=== PATIENT | female | born 1955 | race American Indian/Alaskan Native ===

== ENCOUNTER 2017-09-14 19:13 | Inpatient (IN) | payer MEDICAID ==
[2017-09-14 19:13] VITALS: BMI 52.7
[2017-09-14 20:42] LABS: CHLORIDE 97 mmol/L (98-107); SODIUM 136 mmol/L (132-148)
[2017-09-14 20:44] LABS: INR 1.3
[2017-09-14 20:44] LABS: BASO % 0.3 % (0.0-2.0); EOS # 1.3 K/uL (0.0-0.7); EOS % 17.3 % (0.0-4.0); HEMATOCRIT 21.6 % (34.0-47.0); LYMPH # 1.8 K/uL (1.0-4.3); LYMPH % 23.9 % (20.0-40.0); MEAN CELL VOLUME 95.5 fL (81.0-99.0); MEAN CORPUSCULAR HEMOGLOBIN 30.8 pg (27.0-31.0); MEAN CORPUSCULAR HGB CONC 32.2 g/dL (33.0-37.0); MEAN PLATELET VOLUME 7.3 fL (7.2-11.7); MONO # 0.4 K/uL (0.0-0.8); MONO % 5.4 % (0.0-10.0); NRBC % 0.1 % (0.0-2.0); RED CELL DISTRIBUTION WIDTH 15.9 % (11.5-14.5); WHITE BLOOD COUNT 7.3 K/uL (4.8-10.8)
[2017-09-14 20:45] LABS: ALB/GLOB RATIO 0.8 (1.0-2.1); ALKALINE PHOSPHATASE 114 U/L (38-126); ALT/SGPT 29 U/L (9-52); AST/SGOT 27 U/L (14-36); BILIRUBIN,TOTAL 0.7 mg/dL (0.2-1.3); BLOOD UREA NITROGEN 19 mg/dL (7-17); CARBON DIOXIDE 31 mmol/L (22-30); GFR AFRICAN-AMERICAN > 60; GLUCOSE,RANDOM 104 mg/dL (65-105); TOTAL PROTEIN 6.9 g/dL (6.3-8.3)
[2017-09-14 20:46] LABS: CALCIUM 7.4 mg/dl (8.6-10.4)
--- NOTE | 2017-09-14 22:46 | C.PDOC ---
History Of Present Illness [facility] Hgb (7.2) done on outpatient bloodwork. She denies chest pain, abdominal pain, vomiting/diarrhea, rectal bleeding, vaginal bleeding. She does admit to SOB, particularly with laying flat. Time Seen by Provider: 09/14/17 20:12 Chief Complaint (Nursing): Abnormal Labs History Per: [facility], [facility] History/Exam Limitations: no limitations Current Symptoms Are (Timing): Still Present Severity: Mild Past Medical History Reviewed: Historical Data, Nursing Documentation, Vital Signs Vital Signs: Last Vital Signs Temp 97.8 F 09/18/17 08:22 Pulse 91 H 09/18/17 08:22 Resp 20 09/18/17 08:22 BP 124/77 09/18/17 09:35 Pulse Ox 100 09/18/17 16:41 - Medical History PMH: Asthma, Atrial Fibrillation, Bipolar Disorder, COPD, Depression, HTN, Hypothyroidism, Pneumonia, Schizophrenia, Seizures - [facility] Procedures CLOSURE SKIN & SUBCUTANEOUS NEC (05/29/15) Family History: States: No Known Family Hx - Social History Hx Tobacco Use: No Hx Alcohol Use: No Hx Substance Use: No Review Of Systems Except As Marked, All Systems Reviewed And Found Negative. Constitutional: Negative for: Fever, Chills Cardiovascular: Negative for: Chest Pain, Palpitations Respiratory: Positive for: Shortness of Breath, Other (orthopnea). Negative for : Cough Gastrointestinal: Negative for: Nausea, Vomiting, Abdominal Pain, Diarrhea, Melena, Hematochezia, Hematemesis Genitourinary: Negative for: Dysuria, Hematuria, Vaginal Bleeding Physical Exam - Physical Exam Appears: Well, Non-toxic, No Acute Distress Skin: Normal Color, Warm, Dry Eye(s): bilateral: Normal Inspection Oral Mucosa: Moist Cardiovascular: Rhythm Regular Respiratory: No Decreased Breath Sounds, Rales (mild, at bases B/L), No Rhonchi , No Stridor, No Wheezing Gastrointestinal/Abdominal: Normal Exam, Bowel Sounds, Soft, No Tenderness, Other (morbidly obese) Rectal: Rectal Tone (normal ), No Heme Positive, No Maroon Stool, No Melena, No Blood Streaked Stool, No Hemorrhoids, No Mass, No Tenderness Extremity: Pedal Edema (+3 pitting edema B/L LEs) Pulses: Left Dorsalis Pedis: Normal, Right Dorsalis Pedis: Normal Neurological/Psych: Oriented x3 ED Course And Treatment - Laboratory Results Result Diagrams: 09/16/17 06:49 09/16/17 06:49 O2 Sat by Pulse Oximetry: 100 (RA) Pulse Ox Interpretation: Normal Progress Note: Blood work, CXR, EKG ordered and reviewed. Patient given IV Lasix 20mg. Tranfusion of 2 units PRBCs ordered due to Hgb 6.9. Patient signed consent for blood transfusion. Reevaluation Time: 22:35 Reassessment Condition: Improved (Patient resting comfortably, in no pain or distress.) - Physician Consult Information Physician Contacted: Jayesh Turcios Outcome Of Conversation: Discussed patient with PMD, agrees with admission to his service for severe anemia, CHF. Critical Care Time - Critical Care Note Total Time (in mins): 35 Documented critical care: time excludes all time spent performing seperately billable procedures. Disposition - Disposition Disposition: HOSPITALIZED Disposition Time: 22:53 Condition: STABLE - Clinical Impression Clinical Impression: Severe anemia, CHF (congestive heart failure) Decision To Admit - Pt Status Changed To: Hospital Disposition Of: Inpatient - Admit Certification Admit to Inpatient:: After my assessment, the patient will require hospitalization for at least two midnights. This is because of the severity of symptoms shown, intensity of services needed, and/or the medical risk in this patient being treated as an outpatient. - InPatient: Physician Admission Certification: I certify that this patient requires 2 or more midnights of care for the following reason:: see notes - . Bed Request Type: Telemetry Admitting Physician: Jayesh Turcios Patient Diagnosis: Severe anemia, CHF (congestive heart failure)
[2017-09-14] MEDS ORDERED: Magnesium Hydroxide Susp 30 ml UD PO PRN (23:27)
[2017-09-14] MEDS ORDERED: ACETAMINOPHEN PO PRN (23:27)
[2017-09-15 00:07] LABS: THYROID STIMULATING HORMONE 2.39 mIU/L (0.46-4.68)
[2017-09-15 00:42] LABS: FOLATE > 20.0 ng/mL
[2017-09-15 00:48] LABS: IRON 59 ug/dL (37-170)
[2017-09-15] MEDS ORDERED: Pneumococcal 23-Valent Vaccine IM ONE (03:49)
--- NOTE | 2017-09-15 09:39 | RAD ---
PROCEDURE: CHEST RADIOGRAPH, 1 VIEW HISTORY: SOB COMPARISON: 01/10/2017 FINDINGS: LUNGS: Clear. PLEURA: No pneumothorax or pleural fluid seen. CARDIOVASCULAR: Cardiomegaly, pulmonary vascular congestion a new finding OSSEOUS STRUCTURES: No significant abnormalities. VISUALIZED UPPER ABDOMEN: Normal. OTHER FINDINGS: None. IMPRESSION: Cardiomegaly/mild CHF. Concordant results with the preliminary interpretation rendered by the emergency department physician procedure.
[2017-09-15] MEDS ORDERED: CRANBERRY PO SCH (10:00)
[2017-09-15] MEDS ORDERED: POTASSIUM CHLORIDE PO SCH (10:00)
[2017-09-15] MEDS ORDERED: Albuterol-Ipratrop 3 mg / 0.5 (3 ml) UD INH SCH (10:00)
[2017-09-15] MEDS: Enoxaparin 40 mg Syringe SC SCH (10:59)
[2017-09-15] MEDS: Aritificial Tears (15ml) OU SCH ×2 (11:00→17:24)
[2017-09-15] MEDS: Multivitamin With Minerals Tab PO SCH (11:00)
[2017-09-15] MEDS: Levothyroxine 112 MCG TAB PO SCH (11:00)
[2017-09-15] MEDS: metOLazone 5 MG TAB PO SCH (11:00)
[2017-09-15] MEDS: Potassium Chloride 10 mEq ER Tab PO SCH ×2 (11:15→17:22)
[2017-09-15] MEDS: Levothyroxine 25 MCG TAB PO SCH (11:16)
[2017-09-15 11:42] LABS: HEMATOCRIT 26.7 % (34.0-47.0); MEAN CORPUSCULAR HEMOGLOBIN 31.1 pg (27.0-31.0); MEAN CORPUSCULAR HGB CONC 33.3 g/dL (33.0-37.0); MEAN PLATELET VOLUME 7.2 fL (7.2-11.7); WHITE BLOOD COUNT 6.9 K/uL (4.8-10.8)
[2017-09-15 11:54] LABS: MEAN CELL VOLUME 93.2 fL (81.0-99.0)
[2017-09-15 12:29] LABS: BLOOD UREA NITROGEN 16 mg/dL (7-17); CALCIUM 7.4 mg/dl (8.6-10.4); CARBON DIOXIDE 32 mmol/L (22-30); CHLORIDE 97 mmol/L (98-107); GFR AFRICAN-AMERICAN > 60; GLUCOSE,RANDOM 94 mg/dL (65-105); POTASSIUM 3.7 mmol/L (3.6-5.2); SODIUM 137 mmol/L (132-148)
--- NOTE | 2017-09-15 22:08 | CP.PCM.CON ---
History of Present Illness - History of Present Illness History of Present Illness: 62 year old female with a history of COPD, afib, hypothyroid, bipolar depression , seizures, [facility] (hgb 7.2). The patient denies abnormal bleeding and bruising. She notes to progressive fatigue but denies shortness of breath and chest pain. She is s/p 2U PRBC and reports to feeling better. She has required PRBC transfusions in the past. Past medical history: COPD, afib, hypothyroid, bipolar depression, seizures Past surgical history: Denies Family history: Denies hematologic and oncologic problems Social history: Denies tobacco, alcohol, and illicit drug use. Allergies: Several, see list. Review of systems: All remaining review of systems including HEENT, cardiovascular, respiratory, gastrointestinal, genitourinary, musculoskeletal, dermatologic, neurologic, and psychiatric are negative unless mentioned in the HPI. Past Patient History - Infectious Disease Hx of Infectious Diseases: None - Past Medical History & Family History Past Medical History?: Yes - Past Social History Smoking Status: Never Smoked - CARDIAC Hx Cardiac Disorders: Yes (A.Fib) Hx Hypertension: Yes - PULMONARY Hx Chronic Obstructive Pulmonary Disease (COPD): Yes - NEUROLOGICAL Hx Seizures: Yes - HEENT Hx HEENT Problems: No - RENAL Hx Chronic Kidney Disease: No - ENDOCRINE/METABOLIC Hx Hypothyroidism: Yes - HEMATOLOGICAL/ONCOLOGICAL Hx Human Immunodeficiency Virus (HIV): No - INTEGUMENTARY Hx Dermatological Problems: Yes Other/Comment: decub lower back. Sacral decubitus - MUSCULOSKELETAL/RHEUMATOLOGICAL Hx Falls: Yes Other/Comment: Rotator cuff muscle and tendon injury of shoulder - GASTROINTESTINAL Hx Gastrointestinal Disorders: No Hx Bowel Surgery: No - GENITOURINARY/GYNECOLOGICAL Hx Sexually Transmitted Disorders: No - PSYCHIATRIC Hx Bipolar Disorder: Yes Hx Depression: Yes Hx Schizophrenia: Yes Hx Substance Use: No - SURGICAL HISTORY Other/Comment: arthroplasty - ANESTHESIA Hx Anesthesia: Yes Hx Anesthesia Reactions: No Hx Malignant Hyperthermia: No Meds Allergies/Adverse Reactions: Allergies Allergy/AdvReac Type Severity Reaction Status Date / Time Benzodiazepines Allergy Verified 09/14/17 19:32 benzthiazide Allergy Verified 09/14/17 19:32 Thiazides Allergy ANAPHYLAXIS Verified 09/14/17 19:32 - Medications Medications: Current Medications Acetaminophen (Tylenol 325mg Tab) 650 mg PO Q4 PRN PRN Reason: Pain, Mild (1-3) Albuterol/Ipratropium (Duoneb 3 Mg/0.5 Mg (3 Ml) Ud) 3 ml INH RTID [facility] Artificial Tears (Artificial Tears) 0 ml OU BID [facility] Last Admin: 09/15/17 17:24 Dose: 1 drop Diphenhydramine HCl (Benadryl) 25 mg PO BID PRN PRN Reason: Itching / Pruritus Last Admin: 09/15/17 04:49 Dose: 25 mg Enoxaparin Sodium (Lovenox) 40 mg SC DAILY [facility] Last Admin: 09/15/17 10:59 Dose: 40 mg Famotidine (Pepcid) 20 mg PO DAILY [facility] Last Admin: 09/15/17 11:15 Dose: 20 mg Furosemide (Lasix) 40 mg PO DAILY [facility] Last Admin: 09/15/17 17:25 Dose: 40 mg Lamotrigine (Lamictal) 150 mg PO BID [facility] Last Admin: 09/15/17 17:22 Dose: 150 mg Levothyroxine Sodium (Synthroid) 112 mcg PO DAILY@0630 [facility] Last Admin: 09/15/17 11:00 Dose: 112 mcg Levothyroxine Sodium (Synthroid) 25 mcg PO DAILY@0630 [facility] Last Admin: 09/15/17 11:16 Dose: 25 mcg Magnesium Hydroxide (Milk Of Magnesia) 30 ml PO HS PRN PRN Reason: Constipation Metolazone (Zaroxolyn) 5 mg PO DAILY [facility] Last Admin: 09/15/17 11:00 Dose: 5 mg Multivitamins/Minerals (Therapeutic-M Tab) 1 tab PO DAILY [facility] Last Admin: 09/15/17 11:00 Dose: 1 tab Nebivolol (Bystolic) 2.5 mg PO DAILY [facility] Last Admin: 09/15/17 11:00 Dose: 2.5 mg Nystatin (Nystop Topical Powder) 1 applic TOP BID [facility] Last Admin: 09/15/17 17:24 Dose: 1 applic Oxcarbazepine (Trileptal) 600 mg PO BID [facility] Last Admin: 09/15/17 17:22 Dose: 600 mg Phenobarbital (Phenobarbital Tab) 32.4 mg PO Q8 [facility] Last Admin: 09/15/17 21:47 Dose: 32.4 mg Pneumococcal Polyvalent Vaccine (Pneumovax 23 Vaccine) 0.5 ml IM .ONCE ONE Stop: 09/17/17 10:01 Potassium Chloride (Klor-Con 10) 10 meq PO BID [facility] Last Admin: 09/15/17 17:22 Dose: 10 meq Sertraline HCl (Zoloft) 25 mg PO DAILY [facility] Last Admin: 09/15/17 10:59 Dose: 25 mg Zinc Acetate/Diphenhydramine (Benadryl 1% Zinc Acetate -0.1%) 1 cre TOP BID PRN PRN Reason: Itching / Pruritus Ziprasidone (Geodon Cap) 40 mg PO BID [facility] Last Admin: 09/15/17 17:23 Dose: 40 mg Physical Exam - Head Exam Head Exam: ATRAUMATIC - Eye Exam Eye Exam: Normal appearance - ENT Exam ENT Exam: Mucous Membranes Dry - Respiratory Exam Respiratory Exam: NORMAL BREATHING PATTERN - Cardiovascular Exam Cardiovascular Exam: +S1, +S2 - GI/Abdominal Exam GI & Abdominal Exam: Normal Bowel Sounds - Extremities Exam Extremities exam: Positive for: pedal edema - Psychiatric Exam Psychiatric exam: Flat Affect, Normal Mood - Skin Skin Exam: Warm Results - Vital Signs Recent Vital Signs: Last Vital Signs Temp 98.2 F 09/15/17 15:12 Pulse 82 09/15/17 15:30 Resp 20 09/15/17 15:12 BP 125/68 09/15/17 17:25 Pulse Ox 100 09/15/17 15:12 - Labs Result Diagrams: 09/15/17 11:30 09/15/17 11:30 Labs: Laboratory Results - last 24 hr 09/14/17 09/14/17 09/14/17 20:26 23:21 23:30 WBC RBC Hgb Hct MCV MCH MCHC RDW Plt Count MPV Retic Count 4.0 H Sodium Potassium Chloride Carbon Dioxide Anion Gap BUN Creatinine Est GFR ( Amer) Est GFR (Non-Af Amer) Random Glucose Calcium Iron TIBC % Saturation Ferritin 284.0 Vitamin B12 948 H Folate > 20.0 TSH 3rd Generation 2.39 Stool Occult Blood Blood Type O POSITIVE Antibody Screen Negative 09/14/17 09/15/17 09/15/17 23:55 11:30 11:30 WBC 6.9 RBC 2.86 L Hgb 8.9 L D Hct 26.7 L MCV 93.2 D MCH 31.1 H MCHC 33.3 RDW 16.0 H Plt Count 324 MPV 7.2 Retic Count Sodium 137 Potassium 3.7 Chloride 97 L Carbon Dioxide 32 H Anion Gap 11 BUN 16 Creatinine 0.8 Est GFR ( Amer) > 60 Est GFR (Non-Af Amer) > 60 Random Glucose 94 Calcium 7.4 L Iron 59 TIBC 229 L % Saturation 26 Ferritin Vitamin B12 Folate TSH 3rd Generation Stool Occult Blood Blood Type Antibody Screen 09/15/17 14:17 WBC RBC Hgb Hct MCV MCH MCHC RDW Plt Count MPV Retic Count Sodium Potassium Chloride Carbon Dioxide Anion Gap BUN Creatinine Est GFR ( Amer) Est GFR (Non-Af Amer) Random Glucose Calcium Iron TIBC % Saturation Ferritin Vitamin B12 Folate TSH 3rd Generation Stool Occult Blood Negative Blood Type Antibody Screen Assessment & Plan (1) Anemia Assessment and Plan: hypoproliferative erythroid response normal iron, b12, folate stores FOBT negative x 2 s/p 2U PRBC with appropriate correction will evaluate for monoclonal protein may require bone marrow biopsy evaluation in the future if cont. to drop H/H or monoclonal protein detected can use erythropoeitin supplementation in the [facility] in an attempt to decrease transfusion dependence Status: Acute (2) Coagulopathy Assessment and Plan: mild likely nutritional Thank you for this interesting consult. Status: Acute
--- NOTE | 2017-09-15 23:15 | CP.PCM.HP ---
History of Present Illness - History of Present Illness History of Present Illness: CC: shortness of breath, delusional, restless anxious HPI: 62 year old AA female who is skilled nursing resident and dependent for ADLwith a history of COPD, afib, hypothyroid, bipolar depression, seizures, sent from the skilled nursing due to anemia (hgb 7.2). The patient denies abnormal bleeding and bruising. She notes to progressive fatigue but denies shortness of breath and chest pain. She is s/p 2U PRBC and reports to feeling better. She has required PRBC transfusions in the past. Past medical history: COPD, afib, hypothyroid, bipolar depression, seizures Past surgical history: Denies Family history: Denies hematologic and oncologic problems Social history: Denies tobacco, alcohol, and illicit drug use. Allergies: Several, see list. Review of systems: All remaining review of systems including HEENT, cardiovascular, respiratory, gastrointestinal, genitourinary, musculoskeletal, dermatologic, neurologic, and psychiatric are negative unless mentioned in the HPI. Present on Admission - Present on Admission Any Indicators Present on Admission: Yes Review of Systems - Review of Systems Systems not reviewed;Unavailable: Respiratory Distress - Constitutional Constitutional: Fatigue, Lethargy, Weakness - EENT Eyes: absent: As Per HPI, Blind Spots, Blurred Vision, Change in Vision, Decreased Night Vision, Diplopia, Discharge, Dry Eye, Exophthalmos, Floaters, Irritation, Itchy Eyes, Loss of Peripheral Vision, Pain, Photophobia, Requires Corrective Lenses, Sees Flashes, Spots in Vision, Tunnel Vision, Other Visual Disturbances, Loss of Vision, Other Ears: absent: As Per HPI, Decreased Hearing, Ear Discharge, Ear Pain, Tinnitus, Abnormal Hearing, Disequilibrium, Dizziness, Other Nose/Mouth/Throat: absent: As Per HPI, Epistaxis, Nasal Congestion, Nasal Discharge, Nasal Obstruction, Nasal Trauma, Nose Pain, Post Nasal Drip, Sinus Pain, Sinus Pressure, Bleeding Gums, Change in Voice, Dental Pain, Dry Mouth, Dysphagia, Halitosis, Hoarsness, Lip Swelling, Mouth Lesions, Mouth Pain, Odynophagia, Sore Throat, Throat Swelling, Tongue Swelling, Facial Pain, Neck Pain, Neck Mass, Other Past Patient History - Infectious Disease Hx of Infectious Diseases: None - Past Medical History & Family History Past Medical History?: Yes - Past Social History Smoking Status: Never Smoked - CARDIAC Hx Cardiac Disorders: Yes (A.Fib) Hx Hypertension: Yes - PULMONARY Hx Chronic Obstructive Pulmonary Disease (COPD): Yes - NEUROLOGICAL Hx Seizures: Yes - HEENT Hx HEENT Problems: No - RENAL Hx Chronic Kidney Disease: No - ENDOCRINE/METABOLIC Hx Hypothyroidism: Yes - HEMATOLOGICAL/ONCOLOGICAL Hx Human Immunodeficiency Virus (HIV): No - INTEGUMENTARY Hx Dermatological Problems: Yes Other/Comment: decub lower back. Sacral decubitus - MUSCULOSKELETAL/RHEUMATOLOGICAL Hx Falls: Yes Other/Comment: Rotator cuff muscle and tendon injury of shoulder - GASTROINTESTINAL Hx Gastrointestinal Disorders: No Hx Bowel Surgery: No - GENITOURINARY/GYNECOLOGICAL Hx Sexually Transmitted Disorders: No - PSYCHIATRIC Hx Bipolar Disorder: Yes Hx Depression: Yes Hx Schizophrenia: Yes Hx Substance Use: No - SURGICAL HISTORY Other/Comment: arthroplasty - ANESTHESIA Hx Anesthesia: Yes Hx Anesthesia Reactions: No Hx Malignant Hyperthermia: No Meds Allergies/Adverse Reactions: Allergies Allergy/AdvReac Type Severity Reaction Status Date / Time Benzodiazepines Allergy Verified 09/14/17 19:32 benzthiazide Allergy Verified 09/14/17 19:32 Thiazides Allergy ANAPHYLAXIS Verified 09/14/17 19:32 Physical Exam - Constitutional Appears: No Acute Distress, Agitated - Head Exam Head Exam: ATRAUMATIC, NORMAL INSPECTION, NORMOCEPHALIC - Eye Exam Eye Exam: EOMI, Normal appearance, PERRL Pupil Exam: NORMAL ACCOMODATION, PERRL - ENT Exam ENT Exam: Mucous Membranes Moist, Normal Exam - Respiratory Exam Respiratory Exam: Clear to Auscultation Bilateral, NORMAL BREATHING PATTERN - Cardiovascular Exam Cardiovascular Exam: REGULAR RHYTHM - GI/Abdominal Exam GI & Abdominal Exam: Normal Bowel Sounds, Soft. absent: Tenderness - Extremities Exam Extremities exam: Positive for: pedal edema Additional comments: +6 pitting edema - Psychiatric Exam Psychiatric exam: Agitated, Anxious - Skin Skin Exam: Dry, Intact, Normal Color, Warm Results - Vital Signs Recent Vital Signs: Last Vital Signs Temp 98.2 F 09/15/17 15:12 Pulse 82 09/15/17 15:30 Resp 20 09/15/17 15:12 BP 125/68 09/15/17 17:25 Pulse Ox 100 09/15/17 15:12 - Labs Result Diagrams: 09/15/17 11:30 09/15/17 11:30 Labs: Laboratory Results - last 24 hr 09/14/17 09/14/17 09/14/17 20:26 23:21 23:30 WBC RBC Hgb Hct MCV MCH MCHC RDW Plt Count MPV Retic Count 4.0 H Sodium Potassium Chloride Carbon Dioxide Anion Gap BUN Creatinine Est GFR ( Amer) Est GFR (Non-Af Amer) Random Glucose Calcium Iron TIBC % Saturation Ferritin 284.0 Vitamin B12 948 H Folate > 20.0 TSH 3rd Generation 2.39 Stool Occult Blood Blood Type O POSITIVE Antibody Screen Negative 09/14/17 09/15/17 09/15/17 23:55 11:30 11:30 WBC 6.9 RBC 2.86 L Hgb 8.9 L D Hct 26.7 L MCV 93.2 D MCH 31.1 H MCHC 33.3 RDW 16.0 H Plt Count 324 MPV 7.2 Retic Count Sodium 137 Potassium 3.7 Chloride 97 L Carbon Dioxide 32 H Anion Gap 11 BUN 16 Creatinine 0.8 Est GFR ( Amer) > 60 Est GFR (Non-Af Amer) > 60 Random Glucose 94 Calcium 7.4 L Iron 59 TIBC 229 L % Saturation 26 Ferritin Vitamin B12 Folate TSH 3rd Generation Stool Occult Blood Blood Type Antibody Screen 09/15/17 14:17 WBC RBC Hgb Hct MCV MCH MCHC RDW Plt Count MPV Retic Count Sodium Potassium Chloride Carbon Dioxide Anion Gap BUN Creatinine Est GFR ( Amer) Est GFR (Non-Af Amer) Random Glucose Calcium Iron TIBC % Saturation Ferritin Vitamin B12 Folate TSH 3rd Generation Stool Occult Blood Negative Blood Type Antibody Screen Assessment & Plan (1) HTN (hypertension) Status: Acute (2) Morbid obesity Status: Acute (3) Symptomatic anemia Assessment and Plan: hb went diwn to 7.2 fluid overload rule ourt hemolysisi including megaloblastic anemia unlikley GI loss as stool guiac was neg Status: Acute (4) Anemia Status: Acute
[2017-09-16] MEDS: Levothyroxine 25 MCG TAB PO SCH (06:05)
[2017-09-16 07:02] LABS: BASO % 0.3 % (0.0-2.0); EOS # 1.1 K/uL (0.0-0.7); EOS % 17.5 % (0.0-4.0); LYMPH # 1.3 K/uL (1.0-4.3); LYMPH % 21.4 % (20.0-40.0); MEAN CORPUSCULAR HEMOGLOBIN 31.3 pg (27.0-31.0); MEAN CORPUSCULAR HGB CONC 33.3 g/dL (33.0-37.0); MEAN PLATELET VOLUME 7.1 fL (7.2-11.7); MONO # 0.4 K/uL (0.0-0.8); MONO % 7.2 % (0.0-10.0); NRBC % 0.1 % (0.0-2.0); RED CELL DISTRIBUTION WIDTH 15.8 % (11.5-14.5); WHITE BLOOD COUNT 6.2 K/uL (4.8-10.8)
[2017-09-16 07:34] LABS: BLOOD UREA NITROGEN 17 mg/dL (7-17); CALCIUM 7.5 mg/dl (8.6-10.4); CARBON DIOXIDE 33 mmol/L (22-30); CHLORIDE 98 mmol/L (98-107); GFR AFRICAN-AMERICAN > 60; GLUCOSE,RANDOM 82 mg/dL (65-105); POTASSIUM 3.6 mmol/L (3.6-5.2); SODIUM 137 mmol/L (132-148)
[2017-09-16] MEDS: Potassium Chloride 10 mEq ER Tab PO SCH ×2 (10:38→18:34)
[2017-09-16] MEDS: Multivitamin With Minerals Tab PO SCH (10:38)
[2017-09-16] MEDS: Aritificial Tears (15ml) OU SCH ×2 (10:40→18:33)
[2017-09-16] MEDS: metOLazone 5 MG TAB PO SCH (10:41)
[2017-09-16] MEDS: Diphenhydramine 1% Cream (1 oz) TOP PRN (10:42)
[2017-09-16] MEDS: Enoxaparin 40 mg Syringe SC SCH (10:44)
--- NOTE | 2017-09-16 13:29 | CARD ---
APPROVED REPORT EXAM: Two-dimensional and M-mode echocardiogram with Doppler and color Doppler. Other Information Quality : TDSRhythm : Atrial Fibrillation INDICATION Congestive Heart Failure COPD RISK FACTORS Hypertension M-Mode DIMENSIONS RVDd2.29 (2.1-3.2cm)Left Atrium (MM)3.44 (2.5-4.0cm) IVSd0.97 (0.7-1.1cm)Aortic Root3.16 (2.2-3.7cm) LVDd4.55 (4.0-5.6cm)Aortic Cusp Exc.1.94 (1.5-2.0cm) PWd0.94 (0.7-1.1cm)FS (%) 38 % LVDs2.81 (2.0-3.8cm)LVEF (%)68 (>50%) Mitral Valve MV E [id number]/sMV A Bubafpjk447.1cm/sE/A ratio0.8 TDI E/Lateral E'0.0E/Medial E'0.0 Tricuspid Valve TR Peak [id number]/sTR Peak [id number] LEFT VENTRICLE The left ventricle is normal size. There is normal left ventricular wall thickness. The left ventricular function is normal. The left ventricular ejection fraction is within the normal range. There is normal LV segmental wall motion. RIGHT VENTRICLE The right ventricle is normal size. The right ventricular systolic function is normal. ATRIA The left atrium size is normal. The right atrium size is normal. AORTIC VALVE The aortic valve is moderately sclerotic. No aortic regurgitation is present. MITRAL VALVE Mitral annular calcification is mild. TRICUSPID VALVE The tricuspid valve is normal in structure. PULMONIC VALVE There is mild pulmonic valvular regurgitation. GREAT VESSELS The aortic root displays mild sclerocalcific changes of the aortic root. PERICARDIAL EFFUSION There is no pericardial effusion. <Conclusion> TECHNICALLY DIFFICULT STUDY WITH MILD DIASTOLIC DYSFUNCTION AND MILD MD. The aortic valve is moderately sclerotic. The aortic root displays mild sclerocalcific changes of the aortic root.
--- NOTE | 2017-09-16 21:03 | CON ---
PSYCHIATRIC CONSULTATION DATE OF SERVICE: 09/16/2017 CHIEF COMPLAINT AND REASON FOR CONSULTATION: The patient is referred by Dr. Turcios for evaluation and review of the patient's meds. The patient has a history of schizoaffective disorder, bipolar type, on multiple psych meds. HISTORY OF PRESENT ILLNESS: This is a case of a 62-year-old female with extensive psych history consisted of schizoaffective disorder, bipolar type. The patient was brought in from the emergency room complaining of shortness of breath, anxiety, and some periods of paranoid delusion. The patient was noted to have very low hemoglobin which was 7.2. The patient had transfusion and feeling better, but referred for comanagement as the patient has been on multiple psych meds. The patient reports that she has been taking these medicines for a [facility], but really could not give a timeframe. The patient is on Geodon 40 mg b.i.d., Lamictal 150 mg b.i.d. The patient also is on phenobarbital 32.4 mg q. 8 hours, this is for her seizures. The patient is on Trileptal 600 mg twice a day and also on Zoloft 25 mg daily. She states she cannot remember the name of the psychiatrist who is following her. The patient has been compliant with meds according to the nurse. She is irritable at times, but generally redirectable. On review of her labs, her current hemoglobin now is 8.6. The patient states she still has trouble sleeping, is anxious at times, and states that she wants her medications reviewed because she states she is taking too much of medication. PAST PSYCHIATRIC HISTORY: Has history of schizoaffective disorder, bipolar type. She states that she was [facility] No suicidal history. PAST MEDICAL HISTORY: The patient has history of anemia, history of transfusion in the past, hypertension, morbid obesity, history of chest pain, history of fall. ALLERGIES: THE PATIENT IS ALLERGIC TO BENZOS, THIAZIDES. LABORATORY DATA: On review of her labs, the patient stated her last hemoglobin is 8.6, hematocrit is 26. Her creatinine is 0.9, iron is 59, B12 is 948, folate is greater than 20, TSH is 2.39. MEDICATIONS: The patient states that she has been taking her medications. On review of her meds, the patient is on Benadryl, Bystolic, albuterol, Geodon, the patient is on magnesium, Lovenox, nystatin, phenobarbital, Synthroid. Her TSH is 2.39 which is within normal limits. Other medications include as stated, lamotrigine, Lasix, Lovenox, famotidine, metolazone, sertraline. REVIEW OF SYSTEMS: GENERAL: The patient is alert and oriented x3, seen in her room, appears obese, irritable since she is not sleeping well. SKIN: No diaphoresis. HEENT: No headache or dizziness. NECK: Supple. RESPIRATORY: No dyspnea. CARDIOVASCULAR: No chest pain. GASTROINTESTINAL: No nausea, no vomiting. EXTREMITIES: The patient is not complaining of pain. NEUROLOGIC: Alert and oriented x3. GENITOURINARY: No dysuria. PHYSICAL EXAMINATION: GENERAL: Elderly female, obese. VITAL SIGNS: Height 5 feet 5 inches, weighs 348 pounds. MENTAL STATUS: The patient's mood is irritable.. Affect is reactive. The patient states she is taking too many psych meds. The patient is referred and is to be seen by PRIYA Espinal, for the anemia. She is also to be seen by Dr. Tierney for the anemia, Hematology. Speech spontaneous. Thought process coherent. Thought content, no overt psychosis, no suicidal or homicidal ideation. Attention and memory seem to be fair. Insight and judgment fair. Impulse control is fair. IMPRESSION: History of schizoaffective disorder, bipolar type, as well as history of anemia. PLAN AND RECOMMENDATIONS: The patient is seen. Meds were reviewed. The patient is currently taking multiple psych meds. Note, the patient is on Trileptal which can have hematologic side effects, especially with prolonged use. The patient also is on phenobarbital as well as Geodon and sertraline. The patient is denying feeling depressed at this time. We will discontinue the sertraline and just keep the patient on the Trileptal as well as the Geodon and the Lamictal. Continue treatment plan as outlined. Once the patient is medically cleared, [facility]. The patient may continue taking phenobarbital, this is for her seizures, but for now, we will discontinue the Zoloft as the patient is not depressed and also the patient is taking multiple medications. Thank you very much for the consultation. Sonny Mclaughlin MD
--- NOTE | 2017-09-16 21:41 | CON ---
ADDENDUM Review of her meds, the two medications that possibly can cause worsening of her anemia is Zoloft. The Zoloft can cause iron-deficiency anemia as Zoloft affects the absorption of iron leading to iron-deficiency anemia. Also the patient is taking Trileptal; Trileptal can cause hematologic side effects in chronic use if taking for long time and can cause anemia and even can cause aplastic anemia. The patient also may develop in very rare cases agranulocytosis, and Trileptal can cause bone marrow depression. Sonny Mclaughlin MD
--- NOTE | 2017-09-16 23:09 | CP.PCM.PN ---
Subjective - Date & Time of Evaluation Date of Evaluation: 09/16/17 Time of Evaluation: 19:00 - Subjective Subjective: Patient seen and examined today, awake, more alert today , denies any chest pain , sob , abdominal pain, N/V/D Objective - Vital Signs/Intake and Output Vital Signs (last 24 hours): Temp Pulse Resp BP Pulse Ox 97.7 F 88 20 109/65 100 09/16/17 15:18 09/16/17 15:18 09/16/17 15:18 09/16/17 15:18 09/16/17 15:18 - Medications Medications: Current Medications Acetaminophen (Tylenol 325mg Tab) 650 mg PO Q4 PRN PRN Reason: Pain, Mild (1-3) Albuterol/Ipratropium (Duoneb 3 Mg/0.5 Mg (3 Ml) Ud) 3 ml INH RTID [facility] Artificial Tears (Artificial Tears) 0 ml OU BID [facility] Last Admin: 09/16/17 18:33 Dose: 1 drop Diphenhydramine HCl (Benadryl) 25 mg PO BID PRN PRN Reason: Itching / Pruritus Last Admin: 09/15/17 04:49 Dose: 25 mg Enoxaparin Sodium (Lovenox) 40 mg SC DAILY [facility] Last Admin: 09/16/17 10:44 Dose: 40 mg Famotidine (Pepcid) 20 mg PO DAILY [facility] Last Admin: 09/16/17 10:38 Dose: 20 mg Furosemide (Lasix) 40 mg PO DAILY [facility] Last Admin: 09/16/17 10:41 Dose: 40 mg Lamotrigine (Lamictal) 150 mg PO BID [facility] Last Admin: 09/16/17 18:34 Dose: 150 mg Levothyroxine Sodium (Synthroid) 112 mcg PO DAILY@0630 [facility] Last Admin: 09/15/17 11:00 Dose: 112 mcg Levothyroxine Sodium (Synthroid) 25 mcg PO DAILY@0630 [facility] Last Admin: 09/16/17 06:05 Dose: 25 mcg Magnesium Hydroxide (Milk Of Magnesia) 30 ml PO HS PRN PRN Reason: Constipation Metolazone (Zaroxolyn) 5 mg PO DAILY [facility] Last Admin: 09/16/17 10:41 Dose: 5 mg Multivitamins/Minerals (Therapeutic-M Tab) 1 tab PO DAILY [facility] Last Admin: 09/16/17 10:38 Dose: 1 tab Nebivolol (Bystolic) 2.5 mg PO DAILY [facility] Last Admin: 09/16/17 10:30 Dose: 2.5 mg Nystatin (Nystop Topical Powder) 1 applic TOP BID [facility] Last Admin: 09/16/17 21:55 Dose: 1 applic Oxcarbazepine (Trileptal) 600 mg PO BID [facility] Last Admin: 09/16/17 18:35 Dose: 600 mg Phenobarbital (Phenobarbital Tab) 32.4 mg PO Q8 [facility] Last Admin: 09/16/17 21:55 Dose: 32.4 mg Pneumococcal Polyvalent Vaccine (Pneumovax 23 Vaccine) 0.5 ml IM .ONCE ONE Stop: 09/17/17 10:01 Potassium Chloride (Klor-Con 10) 10 meq PO BID [facility] Last Admin: 09/16/17 18:34 Dose: 10 meq Zinc Acetate/Diphenhydramine (Benadryl 1% Zinc Acetate -0.1%) 1 cre TOP BID PRN PRN Reason: Itching / Pruritus Last Admin: 09/16/17 10:42 Dose: 1 applic Ziprasidone (Geodon Cap) 40 mg PO BID [facility] Last Admin: 09/16/17 18:34 Dose: 40 mg - Labs Labs: 09/16/17 06:49 09/16/17 06:49 PT 14.4 SECONDS (9.7-12.2) H 09/14/17 20:33 INR 1.3 09/14/17 20:33 APTT 34 SECONDS (21-34) 09/14/17 20:33 Assessment and Plan (1) HTN (hypertension) Status: Acute (2) Morbid obesity Status: Acute (3) Symptomatic anemia Status: Acute (4) Anemia Status: Acute
[2017-09-17] MEDS: Levothyroxine 25 MCG TAB PO SCH (06:02)
[2017-09-17] MEDS: Levothyroxine 112 MCG TAB PO SCH (06:03)
[2017-09-17 07:24] LABS: TOTAL PROTEIN, SERUM 6.7 g/dL (6.1-8.1)
--- NOTE | 2017-09-17 08:47 | CARD ---
APPROVED REPORT EKG Measurement Heart [id number] <Conclusion> Normal sinus rhythm ST & T wave abnormality, consider anterolateral ischemia Prolonged QT Abnormal ECG
[2017-09-17] MEDS ORDERED: Pneumococcal 23-Valent Vaccine IM ONE (10:00)
[2017-09-17] MEDS ORDERED: Influenza Vaccine 60 mcg/0.5 mL SYR (4YR UP) IM ONE (10:00)
[2017-09-17] MEDS: Aritificial Tears (15ml) OU SCH ×2 (10:32→17:53)
[2017-09-17] MEDS: Diphenhydramine 1% Cream (1 oz) TOP PRN (10:33)
[2017-09-17] MEDS: Potassium Chloride 10 mEq ER Tab PO SCH ×2 (10:34→17:52)
[2017-09-17] MEDS: Enoxaparin 40 mg Syringe SC SCH (10:35)
[2017-09-17] MEDS: metOLazone 5 MG TAB PO SCH (10:37)
[2017-09-17] MEDS: Multivitamin With Minerals Tab PO SCH (10:37)
--- NOTE | 2017-09-17 12:03 | CP.PCM.PN ---
Subjective - Date & Time of Evaluation Date of Evaluation: 09/16/17 Time of Evaluation: 19:00 - Subjective Subjective: No complaints. Objective - Vital Signs/Intake and Output Vital Signs (last 24 hours): Temp Pulse Resp BP Pulse Ox 98.4 F 80 18 104/55 L 99 09/17/17 08:31 09/17/17 08:31 09/17/17 08:31 09/17/17 10:35 09/17/17 08:31 Intake and Output: 09/17/17 09/17/17 06:59 18:59 Intake Total 720 Output Total 1700 Balance -980 - Medications Medications: Current Medications Acetaminophen (Tylenol 325mg Tab) 650 mg PO Q4 PRN PRN Reason: Pain, Mild (1-3) Albuterol/Ipratropium (Duoneb 3 Mg/0.5 Mg (3 Ml) Ud) 3 ml INH RTID [facility] Artificial Tears (Artificial Tears) 0 ml OU BID [facility] Last Admin: 09/17/17 10:32 Dose: 1 drop Diphenhydramine HCl (Benadryl) 25 mg PO BID PRN PRN Reason: Itching / Pruritus Last Admin: 09/17/17 10:33 Dose: 25 mg Enoxaparin Sodium (Lovenox) 40 mg SC DAILY [facility] Last Admin: 09/17/17 10:35 Dose: 40 mg Famotidine (Pepcid) 20 mg PO DAILY [facility] Last Admin: 09/17/17 10:36 Dose: 20 mg Furosemide (Lasix) 40 mg PO DAILY [facility] Last Admin: 09/17/17 10:35 Dose: 40 mg Lamotrigine (Lamictal) 150 mg PO BID [facility] Last Admin: 09/17/17 10:35 Dose: 150 mg Levothyroxine Sodium (Synthroid) 112 mcg PO DAILY@0630 [facility] Last Admin: 09/17/17 06:03 Dose: 112 mcg Levothyroxine Sodium (Synthroid) 25 mcg PO DAILY@0630 [facility] Last Admin: 09/17/17 06:02 Dose: 25 mcg Magnesium Hydroxide (Milk Of Magnesia) 30 ml PO HS PRN PRN Reason: Constipation Metolazone (Zaroxolyn) 5 mg PO DAILY [facility] Last Admin: 09/17/17 10:37 Dose: 5 mg Multivitamins/Minerals (Therapeutic-M Tab) 1 tab PO DAILY [facility] Last Admin: 09/17/17 10:37 Dose: 1 tab Nebivolol (Bystolic) 2.5 mg PO DAILY [facility] Last Admin: 09/17/17 10:34 Dose: 2.5 mg Nystatin (Nystop Topical Powder) 1 applic TOP BID [facility] Last Admin: 09/17/17 10:36 Dose: 1 applic Oxcarbazepine (Trileptal) 600 mg PO BID [facility] Last Admin: 09/17/17 11:00 Dose: 600 mg Phenobarbital (Phenobarbital Tab) 32.4 mg PO Q8 [facility] Last Admin: 09/17/17 06:03 Dose: 32.4 mg Potassium Chloride (Klor-Con 10) 10 meq PO BID [facility] Last Admin: 09/17/17 10:34 Dose: 10 meq Zinc Acetate/Diphenhydramine (Benadryl 1% Zinc Acetate -0.1%) 1 cre TOP BID PRN PRN Reason: Itching / Pruritus Last Admin: 09/17/17 10:33 Dose: 1 applic Ziprasidone (Geodon Cap) 40 mg PO BID [facility] Last Admin: 09/17/17 11:00 Dose: 40 mg - Labs Labs: 09/16/17 06:49 09/16/17 06:49 PT 14.4 SECONDS (9.7-12.2) H 09/14/17 20:33 INR 1.3 09/14/17 20:33 APTT 34 SECONDS (21-34) 09/14/17 20:33 - Head Exam Head Exam: ATRAUMATIC - Eye Exam Eye Exam: Normal appearance - ENT Exam ENT Exam: Mucous Membranes Dry - Respiratory Exam Respiratory Exam: NORMAL BREATHING PATTERN - Cardiovascular Exam Cardiovascular Exam: +S1, +S2 - GI/Abdominal Exam GI & Abdominal Exam: Normal Bowel Sounds Assessment and Plan (1) Anemia Assessment & Plan: monoclonal protein work up sent ?psych med related s/p PRBC transfusion Status: Acute (2) Coagulopathy Status: Acute
--- NOTE | 2017-09-17 12:06 | CP.PCM.PN ---
Subjective - Date & Time of Evaluation Date of Evaluation: 09/17/17 Time of Evaluation: 12:00 - Subjective Subjective: No complaints. Objective - Vital Signs/Intake and Output Vital Signs (last 24 hours): Temp Pulse Resp BP Pulse Ox 98.4 F 80 18 104/55 L 99 09/17/17 08:31 09/17/17 08:31 09/17/17 08:31 09/17/17 10:35 09/17/17 08:31 Intake and Output: 09/17/17 09/17/17 06:59 18:59 Intake Total 720 Output Total 1700 Balance -980 - Medications Medications: Current Medications Acetaminophen (Tylenol 325mg Tab) 650 mg PO Q4 PRN PRN Reason: Pain, Mild (1-3) Albuterol/Ipratropium (Duoneb 3 Mg/0.5 Mg (3 Ml) Ud) 3 ml INH RTID [facility] Artificial Tears (Artificial Tears) 0 ml OU BID [facility] Last Admin: 09/17/17 10:32 Dose: 1 drop Diphenhydramine HCl (Benadryl) 25 mg PO BID PRN PRN Reason: Itching / Pruritus Last Admin: 09/17/17 10:33 Dose: 25 mg Enoxaparin Sodium (Lovenox) 40 mg SC DAILY [facility] Last Admin: 09/17/17 10:35 Dose: 40 mg Famotidine (Pepcid) 20 mg PO DAILY [facility] Last Admin: 09/17/17 10:36 Dose: 20 mg Furosemide (Lasix) 40 mg PO DAILY [facility] Last Admin: 09/17/17 10:35 Dose: 40 mg Lamotrigine (Lamictal) 150 mg PO BID [facility] Last Admin: 09/17/17 10:35 Dose: 150 mg Levothyroxine Sodium (Synthroid) 112 mcg PO DAILY@0630 [facility] Last Admin: 09/17/17 06:03 Dose: 112 mcg Levothyroxine Sodium (Synthroid) 25 mcg PO DAILY@0630 [facility] Last Admin: 09/17/17 06:02 Dose: 25 mcg Magnesium Hydroxide (Milk Of Magnesia) 30 ml PO HS PRN PRN Reason: Constipation Metolazone (Zaroxolyn) 5 mg PO DAILY [facility] Last Admin: 09/17/17 10:37 Dose: 5 mg Multivitamins/Minerals (Therapeutic-M Tab) 1 tab PO DAILY [facility] Last Admin: 09/17/17 10:37 Dose: 1 tab Nebivolol (Bystolic) 2.5 mg PO DAILY [facility] Last Admin: 09/17/17 10:34 Dose: 2.5 mg Nystatin (Nystop Topical Powder) 1 applic TOP BID [facility] Last Admin: 09/17/17 10:36 Dose: 1 applic Oxcarbazepine (Trileptal) 600 mg PO BID [facility] Last Admin: 09/17/17 11:00 Dose: 600 mg Phenobarbital (Phenobarbital Tab) 32.4 mg PO Q8 [facility] Last Admin: 09/17/17 06:03 Dose: 32.4 mg Potassium Chloride (Klor-Con 10) 10 meq PO BID [facility] Last Admin: 09/17/17 10:34 Dose: 10 meq Zinc Acetate/Diphenhydramine (Benadryl 1% Zinc Acetate -0.1%) 1 cre TOP BID PRN PRN Reason: Itching / Pruritus Last Admin: 09/17/17 10:33 Dose: 1 applic Ziprasidone (Geodon Cap) 40 mg PO BID [facility] Last Admin: 09/17/17 11:00 Dose: 40 mg - Labs Labs: 09/16/17 06:49 09/16/17 06:49 PT 14.4 SECONDS (9.7-12.2) H 09/14/17 20:33 INR 1.3 09/14/17 20:33 APTT 34 SECONDS (21-34) 09/14/17 20:33 - Head Exam Head Exam: ATRAUMATIC - Eye Exam Eye Exam: Normal appearance - ENT Exam ENT Exam: Mucous Membranes Dry - Respiratory Exam Respiratory Exam: NORMAL BREATHING PATTERN - Cardiovascular Exam Cardiovascular Exam: +S1, +S2 - GI/Abdominal Exam GI & Abdominal Exam: Normal Bowel Sounds Assessment and Plan (1) Anemia Assessment & Plan: ?psych med related; zoloft D/C'd monoclonal protein w/u sent; outpatient f/u s/p PRBC transfusion Status: Acute (2) Coagulopathy Status: Acute
--- NOTE | 2017-09-17 14:27 | CP.PCM.PN ---
Subjective - Date & Time of Evaluation Date of Evaluation: 09/17/17 Time of Evaluation: 10:30 - Subjective Subjective: patient seen and examined today , awake, alert, ox3. denies any chest pain, sob , abdominal pain, N/V s/p PRBC transfusion hgb improved - 8.6<8.9>6.9 Objective - Vital Signs/Intake and Output Vital Signs (last 24 hours): Temp Pulse Resp BP Pulse Ox 98.4 F 80 18 104/55 L 99 09/17/17 08:31 09/17/17 08:31 09/17/17 08:31 09/17/17 10:35 09/17/17 08:31 Intake and Output: 09/17/17 09/17/17 06:59 18:59 Intake Total 720 Output Total 1700 Balance -980 - Medications Medications: Current Medications Acetaminophen (Tylenol 325mg Tab) 650 mg PO Q4 PRN PRN Reason: Pain, Mild (1-3) Albuterol/Ipratropium (Duoneb 3 Mg/0.5 Mg (3 Ml) Ud) 3 ml INH RTID [facility] Artificial Tears (Artificial Tears) 0 ml OU BID [facility] Last Admin: 09/17/17 10:32 Dose: 1 drop Diphenhydramine HCl (Benadryl) 25 mg PO BID PRN PRN Reason: Itching / Pruritus Last Admin: 09/17/17 10:33 Dose: 25 mg Enoxaparin Sodium (Lovenox) 40 mg SC DAILY [facility] Last Admin: 09/17/17 10:35 Dose: 40 mg Famotidine (Pepcid) 20 mg PO DAILY [facility] Last Admin: 09/17/17 10:36 Dose: 20 mg Furosemide (Lasix) 40 mg PO DAILY [facility] Last Admin: 09/17/17 10:35 Dose: 40 mg Lamotrigine (Lamictal) 150 mg PO BID [facility] Last Admin: 09/17/17 10:35 Dose: 150 mg Levothyroxine Sodium (Synthroid) 112 mcg PO DAILY@0630 [facility] Last Admin: 09/17/17 06:03 Dose: 112 mcg Levothyroxine Sodium (Synthroid) 25 mcg PO DAILY@0630 [facility] Last Admin: 09/17/17 06:02 Dose: 25 mcg Magnesium Hydroxide (Milk Of Magnesia) 30 ml PO HS PRN PRN Reason: Constipation Metolazone (Zaroxolyn) 5 mg PO DAILY [facility] Last Admin: 09/17/17 10:37 Dose: 5 mg Multivitamins/Minerals (Therapeutic-M Tab) 1 tab PO DAILY [facility] Last Admin: 09/17/17 10:37 Dose: 1 tab Nebivolol (Bystolic) 2.5 mg PO DAILY [facility] Last Admin: 09/17/17 10:34 Dose: 2.5 mg Nystatin (Nystop Topical Powder) 1 applic TOP BID [facility] Last Admin: 09/17/17 10:36 Dose: 1 applic Oxcarbazepine (Trileptal) 600 mg PO BID [facility] Last Admin: 09/17/17 11:00 Dose: 600 mg Phenobarbital (Phenobarbital Tab) 32.4 mg PO Q8 [facility] Last Admin: 09/17/17 06:03 Dose: 32.4 mg Potassium Chloride (Klor-Con 10) 10 meq PO BID [facility] Last Admin: 09/17/17 10:34 Dose: 10 meq Zinc Acetate/Diphenhydramine (Benadryl 1% Zinc Acetate -0.1%) 1 cre TOP BID PRN PRN Reason: Itching / Pruritus Last Admin: 09/17/17 10:33 Dose: 1 applic Ziprasidone (Geodon Cap) 40 mg PO BID [facility] Last Admin: 09/17/17 11:00 Dose: 40 mg - Labs Labs: 09/16/17 06:49 09/16/17 06:49 PT 14.4 SECONDS (9.7-12.2) H 09/14/17 20:33 INR 1.3 09/14/17 20:33 APTT 34 SECONDS (21-34) 09/14/17 20:33 - Constitutional Appears: No Acute Distress - Respiratory Exam Respiratory Exam: Clear to Ausculation Bilateral, NORMAL BREATHING PATTERN - Cardiovascular Exam Cardiovascular Exam: REGULAR RHYTHM, +S1, +S2 - Neurological Exam Neurological Exam: Alert, Awake, Oriented x3 Assessment and Plan - Assessment and Plan (Free Text) Assessment: A/P 62 yr old female admitted with severe anemia s/p PRBC transfusion hgb improved after transfusion and patient clinically improved stool OB - negative D/W Dr. Tierney ,cleared for discharge to [facility] today and f/u with Dr. Tierney office in [address] Turcios, stable for discharge to [place] today and Dr. Turcios will follow the patient at [facility]
--- NOTE | 2017-09-17 15:03 | PN ---
DATE: 09/17/2017 SUBJECTIVE: The patient is seen. The patient is noted by staff, especially the nurse, to be very irritable and accusing that she is going to report the nurse. Other than that, the patient is close to her baseline. The patient was taking her Zoloft as the patient has diagnosis of anemia and Zoloft can affect the iron transfer system causing the patient to develop iron-deficiency anemia. The patient also is on Trileptal, which can cause bone marrow changes. The patient has been followed by Dr. Tierney and also GI, by Dr. Richardson. Other than that, the patient is manageable, compliant with meds. PHYSICAL EXAMINATION: VITAL SIGNS: Temperature is 98.4, pulse is 80, blood pressure is 132/83, respirations 18, oxygen sats 99%. REVIEW OF SYSTEMS: GENERAL: The patient is alert and oriented x 3, seen in her room, still irritable, but offers no other complaints. SKIN: No diaphoresis. HEENT: No headache or dizziness. NECK: Supple. RESPIRATORY: No shortness of breath. CARDIOVASCULAR: No chest pain. GASTROINTESTINAL: No nausea. No vomiting. EXTREMITIES: The patient is moving extremities. MUSCULOSKELETAL: Feels weak. NEUROLOGIC: Alert and oriented x 3. GENITOURINARY: No dysuria. MENTAL STATUS EXAMINATION: Obese, elderly female, looks stated age, oriented x 3. Mood is still irritable. Affect is reactive. Speech spontaneous. Thought process coherent. Thought content, the patient is very guarded, seems paranoid at times. No suicidal or homicidal ideation. Attention and memory seems to be fair. Insight and judgement fair. Impulse control is fair. IMPRESSION: History of schizoaffective disorder, bipolar type; anemia; hypertension; morbid obesity. PLAN AND RECOMMENDATIONS: The patient was seen, meds reviewed. Continue present management as ordered. I will keep the patient off Zoloft for now. Continue all other psych meds. The patient once medically stable can go back to the senior living for long-term care. Sonny Mclaughlin MD [facility]
[2017-09-17 15:56] VITALS: RESP 20
--- NOTE | 2017-09-17 22:41 | CP.PCM.PN ---
Subjective - Date & Time of Evaluation Date of Evaluation: 09/17/17 Time of Evaluation: 19:25 Objective - Vital Signs/Intake and Output Vital Signs (last 24 hours): Temp Pulse Resp BP Pulse Ox 98.6 F 80 20 114/74 100 09/17/17 15:15 09/17/17 15:15 09/17/17 15:15 09/17/17 15:15 09/17/17 15:15 - Medications Medications: Current Medications Acetaminophen (Tylenol 325mg Tab) 650 mg PO Q4 PRN PRN Reason: Pain, Mild (1-3) Albuterol/Ipratropium (Duoneb 3 Mg/0.5 Mg (3 Ml) Ud) 3 ml INH RTID [facility] Artificial Tears (Artificial Tears) 0 ml OU BID [facility] Last Admin: 09/17/17 17:53 Dose: 1 drop Diphenhydramine HCl (Benadryl) 25 mg PO BID PRN PRN Reason: Itching / Pruritus Last Admin: 09/17/17 10:33 Dose: 25 mg Enoxaparin Sodium (Lovenox) 40 mg SC DAILY [facility] Last Admin: 09/17/17 10:35 Dose: 40 mg Famotidine (Pepcid) 20 mg PO DAILY [facility] Last Admin: 09/17/17 10:36 Dose: 20 mg Furosemide (Lasix) 40 mg PO DAILY [facility] Last Admin: 09/17/17 10:35 Dose: 40 mg Lamotrigine (Lamictal) 150 mg PO BID [facility] Last Admin: 09/17/17 17:50 Dose: 150 mg Levothyroxine Sodium (Synthroid) 112 mcg PO DAILY@0630 [facility] Last Admin: 09/17/17 06:03 Dose: 112 mcg Levothyroxine Sodium (Synthroid) 25 mcg PO DAILY@0630 [facility] Last Admin: 09/17/17 06:02 Dose: 25 mcg Magnesium Hydroxide (Milk Of Magnesia) 30 ml PO HS PRN PRN Reason: Constipation Metolazone (Zaroxolyn) 5 mg PO DAILY [facility] Last Admin: 09/17/17 10:37 Dose: 5 mg Multivitamins/Minerals (Therapeutic-M Tab) 1 tab PO DAILY [facility] Last Admin: 09/17/17 10:37 Dose: 1 tab Nebivolol (Bystolic) 2.5 mg PO DAILY [facility] Last Admin: 09/17/17 10:34 Dose: 2.5 mg Nystatin (Nystop Topical Powder) 1 applic TOP BID [facility] Last Admin: 09/17/17 10:36 Dose: 1 applic Oxcarbazepine (Trileptal) 600 mg PO BID [facility] Last Admin: 09/17/17 17:50 Dose: 600 mg Phenobarbital (Phenobarbital Tab) 32.4 mg PO Q8 [facility] Last Admin: 09/17/17 15:03 Dose: 32.4 mg Potassium Chloride (Klor-Con 10) 10 meq PO BID [facility] Last Admin: 09/17/17 17:52 Dose: 10 meq Zinc Acetate/Diphenhydramine (Benadryl 1% Zinc Acetate -0.1%) 1 cre TOP BID PRN PRN Reason: Itching / Pruritus Last Admin: 09/17/17 10:33 Dose: 1 applic Ziprasidone (Geodon Cap) 40 mg PO BID [facility] Last Admin: 09/17/17 17:49 Dose: 40 mg - Labs Labs: 09/16/17 06:49 09/16/17 06:49 PT 14.4 SECONDS (9.7-12.2) H 09/14/17 20:33 INR 1.3 09/14/17 20:33 APTT 34 SECONDS (21-34) 09/14/17 20:33 Assessment and Plan (1) HTN (hypertension) Status: Acute (2) Morbid obesity Status: Acute (3) Symptomatic anemia Status: Acute (4) Anemia Status: Acute
[2017-09-18] MEDS: Levothyroxine 25 MCG TAB PO SCH (05:46)
[2017-09-18] MEDS: Levothyroxine 112 MCG TAB PO SCH (05:46)
[2017-09-18 08:23] VITALS: PULSE 91; TEMP 97.8
[2017-09-18] MEDS: Multivitamin With Minerals Tab PO SCH (09:35)
[2017-09-18] MEDS: Potassium Chloride 10 mEq ER Tab PO SCH (09:35)
[2017-09-18] MEDS: Enoxaparin 40 mg Syringe SC SCH (09:36)
[2017-09-18] MEDS: Aritificial Tears (15ml) OU SCH (09:37)
[2017-09-18] MEDS: Diphenhydramine 1% Cream (1 oz) TOP PRN (09:39)
[2017-09-18] MEDS: metOLazone 5 MG TAB PO SCH (09:40)
[2017-09-18 09:45] VITALS: BP 124/77
[2017-09-18 12:23] LABS: IGG,SERUM 2371 mg/dL (694-1618); IGM,SERUM 85 mg/dL (48-271)
[2017-09-18 16:38] VITALS: O2SAT 100
--- NOTE | 2017-09-18 22:46 | CP.PCM.DIS ---
Provider - Provider Date of Admission: 09/14/17 22:53 Attending physician: Jayesh Turcios MD Time Spent in preparation of Discharge (in minutes): 45 Diagnosis - Discharge Diagnosis (1) HTN (hypertension) Status: Acute (2) Morbid obesity Status: Acute (3) Symptomatic anemia Status: Acute (4) Anemia Status: Acute Hospital Course - Lab Results Lab Results: Most Recent Lab Values WBC 6.2 K/uL (4.8-10.8) 09/16/17 06:49 RBC 2.76 Mil/uL (3.80-5.20) L 09/16/17 06:49 Hgb 8.6 g/dL (11.0-16.0) L 09/16/17 06:49 Hct 26.0 % (34.0-47.0) L 09/16/17 06:49 MCV 94.0 fL (81.0-99.0) 09/16/17 06:49 MCH 31.3 pg (27.0-31.0) H 09/16/17 06:49 MCHC 33.3 g/dL (33.0-37.0) 09/16/17 06:49 RDW 15.8 % (11.5-14.5) H 09/16/17 06:49 Plt Count 290 K/uL (130-400) 09/16/17 06:49 MPV 7.1 fL (7.2-11.7) L 09/16/17 06:49 Neut % (Auto) 53.6 % (50.0-75.0) 09/16/17 06:49 Lymph % (Auto) 21.4 % (20.0-40.0) 09/16/17 06:49 [place] % (Auto) 7.2 % (0.0-10.0) 09/16/17 06:49 Eos % (Auto) 17.5 % (0.0-4.0) H 09/16/17 06:49 Baso % (Auto) 0.3 % (0.0-2.0) 09/16/17 06:49 Neut # 3.3 K/uL (1.8-7.0) 09/16/17 06:49 Lymph # 1.3 K/uL (1.0-4.3) 09/16/17 06:49 [place] # 0.4 K/uL (0.0-0.8) 09/16/17 06:49 Eos # 1.1 K/uL (0.0-0.7) H 09/16/17 06:49 Baso # 0.0 K/uL (0.0-0.2) 09/16/17 06:49 Retic Count 4.0 % (0.5-1.5) H 09/14/17 23:30 PT 14.4 SECONDS (9.7-12.2) H 09/14/17 20:33 INR 1.3 09/14/17 20:33 APTT 34 SECONDS (21-34) 09/14/17 20:33 Sodium 137 mmol/L (132-148) 09/16/17 06:49 Potassium 3.6 mmol/L (3.6-5.2) 09/16/17 06:49 Chloride 98 mmol/L (98-107) 09/16/17 06:49 Carbon Dioxide 33 mmol/L (22-30) H 09/16/17 06:49 Anion Gap 10 (10-20) 09/16/17 06:49 BUN 17 mg/dL (7-17) 09/16/17 06:49 Creatinine 0.9 mg/dL (0.7-1.2) 09/16/17 06:49 Est GFR ( Amer) > 60 09/16/17 06:49 Est GFR (Non-Af Amer) > 60 09/16/17 06:49 Random Glucose 82 mg/dL (65-105) 09/16/17 06:49 Calcium 7.5 mg/dl (8.6-10.4) L 09/16/17 06:49 Iron 59 ug/dL (37-170) 09/14/17 23:55 TIBC 229 ug/dL (250-450) L 09/14/17 23:55 % Saturation 26 (20-55) 09/14/17 23:55 Ferritin 284.0 ng/mL 09/14/17 23:21 Total Bilirubin 0.7 mg/dL (0.2-1.3) 09/14/17 20:25 AST 27 U/L (14-36) 09/14/17 20:25 ALT 29 U/L (9-52) 09/14/17 20:25 Alkaline Phosphatase 114 U/L (38-126) 09/14/17 20:25 Troponin I < 0.0120 ng/mL (0.00-0.120) 09/14/17 20:51 NT-Pro-B Natriuret Pep 2700 pg/mL (0-900) H 09/14/17 20:51 Total Protein 6.9 g/dL (6.3-8.3) 09/14/17 20:25 Total Protein (PEP) 6.7 g/dL (6.1-8.1) 09/16/17 06:49 Albumin 3.0 g/dL (3.5-5.0) L D 09/14/17 20:25 Globulin 3.9 gm/dL (2.2-3.9) 09/14/17 20:25 Albumin/Globulin Ratio 0.8 (1.0-2.1) L 09/14/17 20:25 Vitamin B12 948 pg/mL (239-931) H 09/14/17 23:21 Folate > 20.0 ng/mL 09/14/17 23:21 TSH 3rd Generation 1.90 mIU/L (0.46-4.68) 09/16/17 06:49 Stool Occult Blood Negative (NEGATIVE) 09/17/17 11:36 Phenobarbital 21.2 mg/L (15.0-40.0) 09/16/17 06:49 IgG 2371 mg/dL (694-1618) H 09/16/17 06:49 IgA 501 mg/dL (81-463) H 09/16/17 06:49 IgM 85 mg/dL (48-271) 09/16/17 06:49 Serum Immunofixation Detected (Not Detected) H 09/16/17 06:49 HIV 1&2 Antibody Screen Negative (NEGATIVE) 09/16/17 06:49 Blood Type O POSITIVE 09/14/17 20:26 Antibody Screen Negative 09/14/17 20:26 - Hospital Course Hospital Course: A/P 62 yr old female admitted with severe anemia s/p PRBC transfusion hgb improved after transfusion and patient clinically improved stool OB - negative D/W Dr. Hankins ,cleared for discharge to [facility] today and f/u with Dr. Hankins office in 2 weeks seen by me , stable for discharge to [place] today and I will follow the patient at [facility] Discharge Exam - Head Exam Head Exam: ATRAUMATIC - Eye Exam Eye Exam: EOMI, Normal appearance, PERRL Pupil Exam: NORMAL ACCOMODATION, PERRL - Respiratory Exam Respiratory Exam: Clear to PA & Lateral, NORMAL BREATHING PATTERN - Cardiovascular Exam Cardiovascular Exam: REGULAR RHYTHM, +S1, +S2 - GI/Abdominal Exam GI & Abdominal Exam: Normal Bowel Sounds Discharge Plan - Discharge Medications Prescriptions: DiphenhydrAMINE [Benadryl] 25 mg PO BID PRN #60 cap PRN Reason: Itching / Pruritus - Follow Up Plan Condition: STABLE Disposition: REHAB FACILITY/REHAB UNIT Instructions: Heart Failure (DC), Heart Healthy Diet (DC), Anemia (DC) Additional Instructions: PLEASE CALL DR. TURCIOS UPON PATIENT ARRIVAL TO THE FACILITY PLEASE F/U WITH DR. HANKINS OFFICE IN 2 WEEKS - CALL AND MAKE APPOINTMENT PLEASE CONTINUE MEDICATION PER MED REC. PLEASE CONTINUE PT/ OT FOR 1 MONTH , DIFFICULTY WITH ADL NO NSAID PLEASE , IF PT IN PAIN CALL DR. TURCIOS AND GET ORDER FOR PAIN MEDS OTHER THAN NSAID Referrals: Jayesh Turcios MD [Staff Provider] -
[2017-09-21 00:29] LABS: KAPPA/LAMBDA FREE RATIO 2.23 (0.26-1.65)
[2017-09-21 20:09] LABS: BETA 1 GLOBULIN 0.4 g/dL (0.4-0.6); BETA 2 GLOBULIN 0.5 g/dL (0.2-0.5); GAMMA GLOBULIN 2.1 g/dL (0.8-1.7)
== END 2017-09-18 10:29 | DRG 574 ==
LOC: C.ER 19:13 → C.9E 22:53 → C.6T 23:25
PROVIDERS: ADMIT Internal Medicine; ATTEND Internal Medicine
PROC: 30233N1 Transfusion of Nonautologous Red Blood Cells into Peripheral Vein, Percutaneous Approach (ICD-10-PCS; principal; 2017-09-15)
DX: D50.8 Other iron deficiency anemias (principal); L89.159 Pressure ulcer of sacral region, unspecified stage; I11.0 Hypertensive heart disease with heart failure; D68.9 Coagulation defect, unspecified; R56.9 Unspecified convulsions; Z68.43 Body mass index [BMI] 50.0-59.9, adult; I50.9 Heart failure, unspecified; F25.0 Schizoaffective disorder, bipolar type; J44.9 Chronic obstructive pulmonary disease, unspecified; E66.01 Morbid (severe) obesity due to excess calories; F32.9 Major depressive disorder, single episode, unspecified; I48.91 Unspecified atrial fibrillation; E03.9 Hypothyroidism, unspecified; T43.225A Adverse effect of selective serotonin reuptake inhibitors, initial encounter